=== PATIENT | female | born 1975 | race Caucasian/White ===

== ENCOUNTER 2018-05-24 05:27 | Day surgery (SDC) | payer OTHER ==
[2018-05-24] MEDS ORDERED: CEFAZOLIN 1 GM INJ (07:00)
[2018-05-24] MEDS ORDERED: LIDOCAINE 2% (SDV) 5 ML INJ (07:16)
[2018-05-24] MEDS ORDERED: MIDAZOLAM 1 MG/ML 2 ML INJ (07:16)
[2018-05-24] MEDS ORDERED: PROPOFOL 20 ML (07:16)
[2018-05-24] MEDS ORDERED: ONDANSETRON 4 MG INJ (07:31)
[2018-05-24] MEDS ORDERED: LABETALOL HCL 20MG INJ IV (08:00)
[2018-05-24] MEDS ORDERED: hydrALAzine 20 MG INJ IV (08:00)
[2018-05-24] MEDS: HYDROmorphONE 1 MG/5 ML IV SYRINGE IV (08:15)
[2018-05-24] MEDS ORDERED: ACETAMINOPHEN 325 MG TAB PO (08:30)
== END 2018-05-24 09:23 | disposition home or self-care (01) ==
LOC: SDS 05:27
DX: R93.89 Abnormal findings on diagnostic imaging of other specified body structures (principal); N92.0 Excessive and frequent menstruation with regular cycle; I10 Essential (primary) hypertension; J45.909 Unspecified asthma, uncomplicated; E78.00 Pure hypercholesterolemia, unspecified; E89.0 Postprocedural hypothyroidism
CPT/HCPCS: 58558; 84702; 84703; 86850; 86900; 86901; 88305